=== PATIENT | female | born 2005 | race Hispanic/Latino ===

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

== ENCOUNTER 2024-12-28 13:11 | Emergency (ER) | payer SELFPAY ==
--- OUTSIDE RECORDS SUMMARY | 2024-12-28 13:17 | XMS REPORT | Continuity of Care Document ---
Author Name Unknown Address [address] [facility] [address] [place] [address] [facility] Address [address] [facility] [address] [place] [address] Care Team Providers Care Curriculum Counselor Name Role Phone PCP, PATIENT DOES NOT HAVE A Primary Care Physic zeeshan Unavailable SUZANNE GERBER Attending Clinician Unavailable SUZANNE GERBER Attending Clinician Unavailable Suzanne Gerber MD Attending Clinician [phone] SINDY MONTELONGO Attending Clinician Unavailable SINDY MONTELONGO Attending Clinician Unavailable Nay Bateman MD Attending Clinician + Doctor Unassigned, [place] Attending Clinician U navailable ROB FAY Attending Clinician Unavailable ROB FAY Attending Clinician Unavailable Yaniv Keyes MD Attending Clinician [phone] Rob Fay MD Attending Clinician [phone] Pob, [facility] Main Attending Clinician Unavailabl e 2, [facility] Attending Clinician Unavailable JAZMIN YAN Attending Clinician Unav ailable Ultrasound, Ang-Mfm Attending Clinician UnavailJazmin Kendrick MD Attending Clinician + ABUNDIO YOUNGER Attending Clinician Unavailable ABUNDIO YOUNGER Attending Clinician Unavailable Abundio Younger MD Attending Clinician [phone] Lilian Becker MD Attending Clinician [phone] Tayla Fay MD Attending Clinician [phone] TAYLA FAY Attending Clinician Unavailable NAY BATEMAN Admitting Clinician Unav ailable SUZANNE GERBER CAM Admitting Clinician Unavailable Merline Gerber MDen Cam Admitting Clinician Payers Payer Name Policy Type Policy Number Effective Date Expirati on Date Source Problems Condition Name Condition Details Condition Category Status Onset Date Resolution Date Last Treatment Date Treating Clinician Comments Source Acute blood loss anemia Acute blood loss anemia Disease Resolve d 2023-0 2-13 00:00: 00 2023-07-22 00:00:00 2023-07-22 11:38:22 [facility] Obesity (BMI 30-39.9) Obesity (BMI 30-39.9) Disease Resolve d 2023-0 2-12 00:00: 00 2023-07-22 00:00:00 2023-07-22 11:38:19 [facility] Liveborn infant, of bernal , born in hospital by vaginal delivery Liveborn , of bernal , born in hospital by vaginal delivery Disease Resolve d 2023-0 2-12 00:00: 00 2023-07-22 00:00:00 2023-07-22 11:38:20 [facility] Third-stag e hemorrhage Third-stag e hemorrhage Disease Resolve d 2023-0 2-12 00:00: 00 2023-07-22 00:00:00 2023-07-22 11:38:12 [facility] 39 weeks gestation of 39 weeks gestation of Disease Resolve d 2023-0 2-09 00:00: 00 2023-07-22 00:00:00 2023-07-22 11:38:19 [facility] Excessive weight gain during , antepartum Excessive weight gain during , antepartum Disease Resolve d 2023-0 1-18 00:00: 00 2023-07-22 00:00:00 2023-07-22 11:38:17 [facility] Pain of round ligament during Pain of round ligament during Disease Resolve d 2022-1 2-09 00:00: 00 2023-07-22 00:00:00 2023-07-22 11:38:11 [facility] High-risk in third trimester High-risk in third trimester Disease Resolve d 2022-1 0-12 00:00: 00 2023-07-22 00:00:00 2023-07-22 11:38:16 [facility] Allergies, Adverse Reactions, Alerts Allergy Name Allergy Type Status Severity Reaction(s) Onset Date Inactive Date Treating Clinician Comments Source NO KNOWN ALLERGIE S Drug Class Active [facility] Social History Social Habit Start Date Stop Date Quantity Comments Source ASSERTION 2022-09-28 00:00:[address] [facility] Alcoholic beverage intake 2023-12-31 00:00:00 2023-12-31 00:00:00 Ex-drinker (finding) [facility] Alcohol intake 2023-07-22 00:00:00 2023-07-22 00:00:00 Ex-drinker (finding) [facility] History of Social function 2023-03-14 00:00:00 2023-03-14 00:00:[address] [facility] Tobacco use and exposure 2023-02-14 00:00:00 2023-02-14 00:00:00 Smokeless tobacco non-user [facility] Sex assigned at 2004 00:00:00 2005 00:00:[address] [facility] Smoking Status Start Date Stop Date Source Tobacco smoking consumption unknown [facility] Never smoked tobacco [facility] Medications Ordered Medication Name Filled Medication Name Start Date Stop Date Current Medication? Ordering Clinician Indication Dosage Frequency Signature (SIG) Comments Components Source fluconazole 150 mg tablet 8 00:00: 00 01-02 04:59 :00 No [id number] 150mg Take 1 tablet by mouth once now for 1 dose. [facility] acetaminoph en (TYLENOL) tablet 1,000 mg 10-19 00:30: 00 10-19 00:19 :00 No 1000mg 1,000 mg, Oral, ONCE, 1 dose, On 10/19/23 at 1930, CHIDI [facility] iopamidol (ISOVUE 370-500 mL) injection 100 mL 10-18 23:45: 00 10-19 00:00 :00 No [id number] 100mL 100 mL, Intravenou s, ONCE, 1 dose, On 10/19/23 at 1900, Routine [facility] triamcinolo ne acetonide 0.1 % cream 07-17 00:00: 00 Yes [id number] Apply to area(s) 2 (two) times daily. [facility] adapalene 0.1 % cream 07-17 00:00: 00 Yes [id number] Apply to area(s) at bedtime. Mix 50:50 with OTC urea and apply to arms nightly as tolerated. [facility] tretinoin 0.025 % cream 07-17 00:00: 00 07-17 00:00 :00 No [id number] Apply to affected area(s) at bedtime. [facility] furosemide (LASIX) 20 mg tablet 06-21 00:00: 00 06-22 05:59 :00 No [id number] 20mg Take 1 tablet by mouth once now for 1 dose. [facility] ferrous sulfate tablet 325 mg 06-18 14:00: 00 Yes 325mg 325 mg, Oral, BID, First dose on Sat06/18/23 at 0800, Until Discontinu ed, Routine [facility] PNV 102-IRON-FO LATE 1-DSS-DHA ORAL 06-18 07:45: 23 06-18 00:00 :00 No Take by mouth. [facility] vitamin w/FA tablet 06-18 00:00: 00 Yes [id number] 1{tbl} Take 1 tablet by mouth in the morning. [facility] ferrous sulfate 325 mg (65 mg iron) tablet 06-18 00:00: 00 Yes [id number] 325mg Take 1 tablet by mouth in the morning. [facility] docusate 100 mg capsule 06-18 00:00: 00 12-30 00:00 :00 No [id number] 200mg Take 2 capsules by mouth once daily as needed for Constipati on. [facility] ibuprofen 600 mg tablet 06-18 00:00: 00 12-30 00:00 :00 No [id number] 600mg Take 1 tablet by mouth every 6 (six) hours as needed (Pain). Take with food or milk. [facility] witch Damian (TUCKS) 50 % topical pad 06-17 20:20: 59 Yes Topical, Q4HPRN, Starting on Sat06/17/23 at 1420, Until Discontinu ed, Routine, rectal/hem orrhoidal pain [facility] rho(D) immune globulin (RHOGAM) syringe 300 mcg 06-17 20:20: 08 Yes 300ug 300 mcg, Intramuscu lar, ONCE, For 1 dose, Conditiona l, Routine [facility] HYDROcodone -acetaminop hen (NORCO 5) 5-325 mg tablet 1 tablet 06-17 20:20: 02 Yes 1{tbl} 1 tablet, Oral, Q6HPRN, Starting on Sat06/17/23 at 1420, Until Discontinu ed, Routine, Pain (scale 7-10) [facility] ibuprofen (IBU) tablet 600 mg 06-17 20:20: 02 Yes 600mg 600 mg, Oral, Q6HPRN, Starting on Sat06/17/23 at 1420, Until Discontinu ed, Routine, Pain (scale 4-6) [facility] acetaminoph en (TYLENOL) tablet 650 mg 06-17 20:20: 02 Yes 650mg 650 mg, Oral, Q6HPRN, Starting on Sat06/17/23 at 1420, Until Discontinu ed, Routine, Pain (scale 1-3) [facility] diphenhydrA MINE (BENADRYL) tablet 25 mg 06-17 20:20: 02 Yes 25mg 25 mg, Oral, Q6HPRN, Starting on Sat06/17/23 at 1420, Until Discontinu ed, Routine, Sleep, Itching [facility] ondansetron (ZOFRAN (PF)) injection 4 mg 06-17 20:20: 02 Yes 4mg 4 mg, Slow IV Push, Q8HPRN, Starting on Sat06/17/23 at 1420, Until Discontinu ed, Routine, Nausea and Vomiting (N/V) [facility] simethicone (GAS RELIEF (SIMETHICON E)) chewable tablet 160 mg 06-17 20:20: 02 Yes 160mg 160 mg, Oral, PC+HSPRN, Starting on Sat06/17/23 at 1420, Until Discontinu ed, Routine, Gas [facility] docusate (COLACE) capsule 200 mg 06-17 20:20: 02 Yes 200mg 200 mg, Oral, QDAILYPRN, Starting on Sat06/17/23 at 1420, Until Discontinu ed, Routine, Constipati on [facility] magnesium hydroxide (MILK OF MAGNESIA) 400 mg/5 mL suspension 30 mL 06-17 20:20: 02 Yes 30mL 30 mL, Oral, QDAILYPRN, Starting on Sat06/17/23 at 1420, Until Discontinu ed, Routine, Constipati on [facility] benzocaine- menthol (DERMOPLAST ) 20-0.5 % topical spray 06-17 20:20: 02 Yes Topical, PRN, Starting on Sat06/17/23 at 1420, Until Discontinu ed, Routine, Perineum discomfort [facility] diphenoxyla te-atropine (LOMOTIL) 2.5-0.025 mg tablet 1 tablet 06-17 19:23: 54 06-17 20:20 :59 No 1{tbl} 1 tablet, Oral, Q6HPRN, Starting on Sat06/17/23 at 1323, Until Sat06/17/23 at 1420, Routine, Nausea and Vomiting (N/V) [facility] oxytocin (PITOCIN) 30 units in NS 500 mL IV infusion 06-17 16:14: 58 06-17 20:20 :59 No 2mU/min at 2-40 mL/hr, IV Infusion, TITRATE, Starting on Sat06/17/23 at 1014, Until Sat06/17/23 at 1420, CHIDI [facility] misoprostol (CYTOTEC) quarter-tab let 25 mcg 06-17 11:30: 00 06-17 15:16 :57 No 25ug 25 mcg, Vaginal, Q4H ABX, First dose (after last modificati on) on Sat06/17/23 at 0530, Until Discontinu ed, Routine [facility] misoprostol (CYTOTEC) quarter-tab let 25 mcg 06-17 06:30: 00 06-17 07:23 :00 No 25ug 25 mcg, Oral, ONCE, 1 dose, On Sat06/17/23 at 0030, Routine [facility] misoprostol (CYTOTEC) quarter-tab let 25 mcg 06-17 06:21: 33 06-17 08:37 :14 No 25ug 25 mcg, Vaginal, Q4H ABX, First dose on Sat06/17/23 at 0030, Until Discontinu ed, Routine [facility] ondansetron (ZOFRAN (PF)) injection 4 mg 06-17 06:21: 33 06-17 20:20 :59 No 4mg 4 mg, Slow IV Push, Q8HPRN, Nausea and Vomiting (N/V), Starting on Sat06/17/23 at 0021
Do ses of ondansetro n 16 mg and above need to be administer ed via IV piggyback. For Dose >=24mg ECG monitoring is advisable.
[facility] FENTanyl PF (SUBLIMAZE (PF)) injection 100 mcg 06-17 06:21: 33 06-17 20:20 :59 No 100ug 100 mcg, Slow IV Push, Q1HPRN, Starting on Sat06/17/23 at 0021, Until Sat06/17/23 at 1420, Routine, contractio n pain without an epidural and SVE < 8 cm and Cat I strip [facility] lactated ringers IV infusion 500 mL 06-17 06:21: 29 06-17 20:20 :46 No 500mL at 999 mL/hr, 500 mL, IV Infusion, PRN - SEE INSTRUCTIO NS, Starting on Sat06/17/23 at 0021, Until Sat06/17/23 at 1420, Routine [facility] carboprost (HEMABATE) injection 250 mcg 06-17 06:: 06-17 20:20 :46 No 250ug 250 mcg, Intramuscu lar, Q2HPRN, 8 doses, Starting on Sat06/17/23 at 0021, Until Sat06/17/23 at 1420, Routine, PPH [facility] methylergon ovine (METHERGINE ) injection 0.2 mg 06-17 06:: 06-17 19:08 :00 No .2mg 0.2 mg, Intramuscu lar, Q4HPRN, 1 dose, Starting on Sat06/17/23 at 0021, Until Discontinu ed, Routine, PPH [facility] oxytocin (PITOCIN) 30 units in NS 500 mL IV infusion 06-17 06:: 06-17 19:09 :00 No 600mL/h 600 mL/hr, IV Infusion, PRN, PPH, Starting on Sat06/17/23 at 0021, For 1 dose
As instructed by physician at bedside.<b r> [facility] D5W-LR IV infusion 1,000 mL 06-17 06:: 06-17 20:20 :46 No 1000mL at 1-125 mL/hr, IV Infusion, TITRATE, Starting on Sat06/17/23 at 0021, Until Sat06/17/23 at 1420, Routine [facility] sodium citrate-cit marin acid (BICITRA) 500-334 mg/5 mL solution 30 mL 06-17 06:21: 06-17 12:04 :00 No 30mL 30 mL, Oral, PRE-PROCED URE ONCE, 1 dose, Starting on Sat06/17/23 at 0021, Until Discontinu ed, Routine, Surgery/Pr ocedure [facility] lactated ringers IV infusion 500 mL 06-17 06:21: 25 06-17 13:56 :00 No 500mL at 999 mL/hr, 500 mL, IV Infusion, PRN - SEE RICHARD SIGALA, 1 dose, Starting on Sat06/17/23 at 0021, Until Discontinu ed, Routine [facility] CALCIUM ACETATE ORAL 05-30 11:39: 55 05-30 00:00 :00 No Take by mouth. [facility] CALCIUM ACETATE ORAL 05-23 10:06: 10 Yes Take by mouth. [facility] hydrocortis one 2.5 % cream 2022-05 00:00: 00 05-30 00:00 :00 No [id number] Apply to affected area(s) 2 (two) times daily. Safe for the face. [facility] fluconazole (DIFLUCAN) 200 mg tablet 2022-05 00:00: 00 05-30 00:00 :00 No [id number] 200mg Take 1 tablet by mouth in the morning. [facility] metroNIDAZO LE (FLAGYL) 500 mg tablet 2022-05 0 00:00: 00 02-23 04:59 :00 No [id number] 500mg Take 1 tablet by mouth in the morning and 1 tablet in the evening. Do all this for 7 days. [facility] CALCIUM ACETATE ORAL 2022-05 0 14:31: 25 Yes Take by mouth. [facility] nystatin-tr iamcinolone cream 2022-05 0-12 00:00: 00 05-30 00:00 :00 No [id number] Apply to area(s) 2 (two) times daily. [facility] Immunizations Ordered Immunization Name Filled Immunization Name Date Status Comments Source Influenza Virus Vaccine Quad IM, Preserv and ABX Free 6 MO-64 YRS (FLUCELVAX) Unknown Completed [facility] Influenza Virus Vaccine Quad IM, Preserv and ABX Free 6 MO-64 YRS (FLUCELVAX) Unknown Completed [facility] Influenza Virus Vaccine Quad IM, Preserv and ABX Free 6 MO-64 YRS (FLUCELVAX) Unknown Completed [facility] Influenza Virus Vaccine Quad IM, Preserv and ABX Free 6 MO-64 YRS (FLUCELVAX) Unknown Completed [facility] Influenza Virus Vaccine Quad IM, Preserv and ABX Free 6 MO-64 YRS (FLUCELVAX) Unknown Completed [facility] Influenza Virus Vaccine Quad IM, Preserv and ABX Free 6 MO-64 YRS (FLUCELVAX) Unknown Completed [facility] Influenza Virus Vaccine Quad IM, Preserv and ABX Free 6 MO-64 YRS (FLUCELVAX) Unknown Completed [facility] TDAP Unknown Completed [facility] Influenza Virus Vaccine Quad IM, Preserv and ABX Free 6 MO-64 YRS (FLUCELVAX) Unknown Completed [facility] Influenza Virus Vaccine Quad IM, Preserv and ABX Free 6 MO-64 YRS (FLUCELVAX) Unknown Completed [facility] TDAP Unknown Completed [facility] Influenza Virus Vaccine Quad IM, Preserv and ABX Free 6 MO-64 YRS (FLUCELVAX) Unknown Completed [facility] TDAP Unknown Completed [facility] Influenza Virus Vaccine Quad IM, Preserv and ABX Free 6 MO-64 YRS (FLUCELVAX) Unknown Completed [facility] TDAP Unknown Completed [facility] Influenza Virus Vaccine Quad IM, Preserv and ABX Free 6 MO-64 YRS (FLUCELVAX) Unknown Completed [facility] TDAP Unknown Completed [facility] Influenza Virus Vaccine Quad IM, Preserv and ABX Free 6 MO-64 YRS (FLUCELVAX) Unknown Completed [facility] Influenza Virus Vaccine Quad IM, Preserv and ABX Free 6 MO-64 YRS (FLUCELVAX) Unknown Completed [facility] TDAP Unknown Completed [facility] Influenza Virus Vaccine Quad IM, Preserv and ABX Free 6 MO-64 YRS (FLUCELVAX) Unknown Completed [facility] TDAP Unknown Completed [facility] Influenza Virus Vaccine Quad IM, Preserv and ABX Free 6 MO-64 YRS (FLUCELVAX) Unknown Completed [facility] TDAP Unknown Completed [facility] Influenza Virus Vaccine Quad IM, Preserv and ABX Free 6 MO-64 YRS (FLUCELVAX) Unknown Completed [facility] TDAP Unknown Completed [facility] Influenza Virus Vaccine Quad IM, Preserv and ABX Free 6 MO-64 YRS (FLUCELVAX) Unknown Completed [facility] TDAP Unknown Completed [facility] Influenza Virus Vaccine Quad IM, Preserv and ABX Free 6 MO-64 YRS (FLUCELVAX) Unknown Completed [facility] TDAP Unknown Completed [facility] Influenza Virus Vaccine Quad IM, Preserv and ABX Free 6 MO-64 YRS (FLUCELVAX) Unknown Completed [facility] TDAP Unknown Completed [facility] Influenza Virus Vaccine Quad IM, Preserv and ABX Free 6 MO-64 YRS (FLUCELVAX) Unknown Completed [facility] TDAP Unknown Completed [facility] Influenza Virus Vaccine Quad IM, Preserv and ABX Free 6 MO-64 YRS (FLUCELVAX) Unknown Completed [facility] Influenza Virus Vaccine Quad IM, Preserv and ABX Free 6 MO-64 YRS (FLUCELVAX) Unknown Completed [facility] TDAP Unknown Completed [facility] Influenza Virus Vaccine Quad IM, Preserv and ABX Free 6 MO-64 YRS (FLUCELVAX) Unknown Completed [facility] TDAP Unknown Completed [facility] Influenza Virus Vaccine Quad IM, Preserv and ABX Free 6 MO-64 YRS (FLUCELVAX) Unknown Completed [facility] TDAP Unknown Completed [facility] Influenza Virus Vaccine Quad IM, Preserv and ABX Free 6 MO-64 YRS (FLUCELVAX) Unknown Completed [facility] TDAP Unknown Completed [facility] Influenza Virus Vaccine Quad IM, Preserv and ABX Free 6 MO-64 YRS (FLUCELVAX) Unknown Completed [facility] TDAP Unknown Completed [facility] Influenza Virus Vaccine Quad IM, Preserv and ABX Free 6 MO-64 YRS (FLUCELVAX) Unknown Completed [facility] TDAP Unknown Completed [facility] Influenza Virus Vaccine Quad IM, Preserv and ABX Free 6 MO-64 YRS (FLUCELVAX) Unknown Completed [facility] Influenza Virus Vaccine Quad IM, Preserv and ABX Free 6 MO-64 YRS (FLUCELVAX) Unknown Completed [facility] TDAP Unknown Completed [facility] Influenza Virus Vaccine Quad IM, Preserv and ABX Free 6 MO-64 YRS (FLUCELVAX) Unknown Completed [facility] TDAP Unknown Completed [facility] Influenza Virus Vaccine Quad IM, Preserv and ABX Free 6 MO-64 YRS (FLUCELVAX) Unknown Completed [facility] TDAP Unknown Completed [facility] Influenza Virus Vaccine Quad IM, Preserv and ABX Free 6 MO-64 YRS (FLUCELVAX) Unknown Completed [facility] Influenza Virus Vaccine Quad IM, Preserv and ABX Free 6 MO-64 YRS (FLUCELVAX) Unknown Completed [facility] Vital Signs Vital Name Observation Time Observation Value Comments S our Systolic blood pressure 2023-12-31 20:58:00 107 mm[Hg] [facility] Diastolic blood pressure 2023-12-31 20:58:00 67 mm[Hg] [facility] Heart rate 2023-12-31 20:58:00 75 /min [facility] Body temperature 2023-12-31 20:58:[address] [facility] Body weight 2023-12-31 20:58:00 69.945 kg [facility] Systolic blood pressure 2023-10-20 01:00:00 113 mm[Hg] [facility] Diastolic blood pressure 2023-10-20 01:00:00 90 mm[Hg] [facility] Heart rate 2023-10-20 01:00:00 92 /min [facility] Body temperature 2023-10-20 01:00:[address] [facility] Respiratory rate 2023-10-20 01:00:00 16 /min [facility] Oxygen saturation in Arterial blood by Pulse oximetry 2023-10-20 01:00:00 98 /min [facility] Body height 2023-10-19 21:43:00 165.1 cm [facility] Body weight 2023-10-19 21:43:00 72.576 kg [facility] BMI 2023-10-19 21:43:00 26.63 kg/m2 [facility] Systolic blood pressure 2023-07-22 16:37:00 114 mm[Hg] [facility] Diastolic blood pressure 2023-07-22 16:37:00 55 mm[Hg] [facility] Heart rate 2023-07-22 16:37:00 63 /min [facility] Respiratory rate 2023-07-22 16:37:00 18 /min [facility] Body height 2023-07-22 16:37:00 167.6 cm [facility] Body weight 2023-07-22 16:37:00 75.751 kg [facility] BMI 2023-07-22 16:37:00 26.95 kg/m2 [facility] Systolic blood pressure 2023-06-21 22:13:00 126 mm[Hg] [facility] Diastolic blood pressure 2023-06-21 22:13:00 83 mm[Hg] [facility] Heart rate 2023-06-21 22:13:00 89 /min [facility] Body temperature 2023-06-21 22:13:[address] [facility] Respiratory rate 2023-06-21 22:13:00 16 /min [facility] Body height 2023-06-21 22:13:00 165.1 cm [facility] Body weight 2023-06-21 22:13:00 81.058 kg [facility] BMI 2023-06-21 22:13:00 29.74 kg/m2 [facility] Oxygen saturation in Arterial blood by Pulse oximetry 2023-06-21 22:13:00 97 /min [facility] Systolic blood pressure 2023-06-18 22:15:00 120 mm[Hg] [facility] Diastolic blood pressure 2023-06-18 22:15:00 74 mm[Hg] [facility] Body temperature 2023-06-18 20:23:[address] [facility] Respiratory rate 2023-06-18 20:23:00 18 /min [facility] Heart rate 2023-06-18 20:20:00 84 /min [facility] Oxygen saturation in Arterial blood by Pulse oximetry 2023-06-18 20:20:00 100 /min [facility] Body height 2023-06-17 06:30:00 165.1 cm [facility] Body weight 2023-06-17 06:30:00 85.367 kg [facility] BMI 2023-06-17 06:30:00 31.32 kg/m2 [facility] Systolic blood pressure 2023-06-13 15:43:00 114 mm[Hg] [facility] Diastolic blood pressure 2023-06-13 15:43:00 65 mm[Hg] [facility] Heart rate 2023-06-13 15:43:00 95 /min [facility] Body temperature 2023-06-13 15:43:[address] [facility] Body height 2023-06-13 15:43:00 167.6 cm [facility] Body weight 2023-06-13 15:43:00 85.458 kg [facility] BMI 2023-06-13 15:43:00 30.41 kg/m2 [facility] Systolic blood pressure 2023-06-06 17:01:00 123 mm[Hg] [facility] Diastolic blood pressure 2023-06-06 17:01:00 69 mm[Hg] [facility] Heart rate 2023-06-06 17:01:00 102 /min [facility] Body temperature 2023-06-06 17:01:[address] [facility] Body height 2023-06-06 17:01:00 167.6 cm [facility] Body weight 2023-06-06 17:01:00 85.095 kg [facility] BMI 2023-06-06 17:01:00 30.28 kg/m2 [facility] Systolic blood pressure 2023-05-30 17:08:00 117 mm[Hg] [facility] Diastolic blood pressure 2023-05-30 17:08:00 78 mm[Hg] [facility] Heart rate 2023-05-30 17:08:00 100 /min [facility] Body temperature 2023-05-30 17:08:[address] [facility] Body height 2023-05-30 17:08:00 167.6 cm [facility] [facility] Body weight 2023-05-30 17:08:00 83.643 kg [facility] BMI 2023-05-30 17:08:00 29.76 kg/m2 [facility] Systolic blood pressure 2023-05-23 16:05:00 116 mm[Hg] [facility] Diastolic blood pressure 2023-05-23 16:05:00 76 mm[Hg] [facility] Heart rate 2023-05-23 16:05:00 105 /min [facility] Respiratory rate 2023-05-23 16:05:00 18 /min [facility] Body height 2023-05-23 16:05:00 167.6 cm [facility] Body weight 2023-05-23 16:05:00 82.827 kg [facility] BMI 2023-05-23 16:05:00 29.47 kg/m2 [facility] Oxygen saturation in Arterial blood by Pulse oximetry 2023-05-23 16:05:00 97 /min [facility] Systolic blood pressure 2023-05-09 15:16:00 104 mm[Hg] [facility] Diastolic blood pressure 2023-05-09 15:16:00 66 mm[Hg] [facility] Heart rate 2023-05-09 15:16:00 81 /min [facility] Body temperature 2023-05-09 15:16:[address] [facility] Respiratory rate 2023-05-09 15:16:00 17 /min [facility] Body height 2023-05-09 15:16:00 167.6 cm [facility] Body weight 2023-05-09 15:16:00 82.192 kg [facility] BMI 2023-05-09 15:16:00 29.25 kg/m2 [facility] Systolic blood pressure 2023-04-25 14:37:00 110 mm[Hg] [facility] Diastolic blood pressure 2023-04-25 14:37:00 66 mm[Hg] [facility] Heart rate 2023-04-25 14:37:00 93 /min [facility] Body temperature 2023-04-25 14:37:[address] [facility] Respiratory rate 2023-04-25 14:37:00 17 /min [facility] Body height 2023-04-25 14:37:00 170.2 cm [facility] Body weight 2023-04-25 14:37:00 81.738 kg [facility] BMI 2023-04-25 14:37:00 28.22 kg/m2 [facility] Systolic blood pressure 2023-04-11 14:19:00 107 mm[Hg] [facility] Diastolic blood pressure 2023-04-11 14:19:00 69 mm[Hg] [facility] Heart rate 2023-04-11 14:19:00 89 /min [facility] Body temperature 2023-04-11 14:19:[address] [facility] Respiratory rate 2023-04-11 14:19:00 17 /min [facility] Body height 2023-04-11 14:19:00 170.2 cm [facility] Body weight 2023-04-11 14:19:00 81.103 kg [facility] BMI 2023-04-11 14:19:00 28.00 kg/m2 [facility] Body height 2023-04-01 17:00:00 165.1 cm [facility] Body weight 2023-04-01 17:00:00 78.019 kg [facility] BMI 2023-04-01 17:00:00 28.62 kg/m2 [facility] Systolic blood pressure 2023-03-21 12:21:00 119 mm[Hg] [facility] Diastolic blood pressure 2023-03-21 12:21:00 82 mm[Hg] [facility] Heart rate 2023-03-21 12:21:00 89 /min [facility] Body temperature 2023-03-21 12:21:[address] [facility] Respiratory rate 2023-03-21 12:21:00 20 /min [facility] Body height 2023-03-21 12:21:00 165.1 cm [facility] Body weight 2023-03-21 12:21:00 78.971 kg [facility] BMI 2023-03-21 12:21:00 28.97 kg/m2 [facility] Oxygen saturation in Arterial blood by Pulse oximetry 2023-03-21 12:21:00 100 /min [facility] Systolic blood pressure 2023-03-14 22:14:00 125 mm[Hg] [facility] Diastolic blood pressure 2023-03-14 22:14:00 69 mm[Hg] [facility] Heart rate 2023-03-14 22:14:00 80 /min [facility] Body temperature 2023-03-14 22:14:[address] [facility] Respiratory rate 2023-03-14 22:14:00 17 /min [facility] Body height 2023-03-14 22:14:00 165.1 cm [facility] Body weight 2023-03-14 22:14:00 78.472 kg [facility] BMI 2023-03-14 22:14:00 28.79 kg/m2 [facility] Systolic blood pressure 2023-02-14 19:31:00 123 mm[Hg] [facility] Diastolic blood pressure 2023-02-14 19:31:00 73 mm[Hg] [facility] Heart rate 2023-02-14 19:31:00 86 /min [facility] Body temperature 2023-02-14 19:31:[address] [facility] Respiratory rate 2023-02-14 19:31:00 18 /min [facility] Body height 2023-02-14 19:31:00 165.1 cm [facility] Body weight 2023-02-14 19:31:00 76.386 kg [facility] BMI 2023-02-14 19:31:00 28.02 kg/m2 [facility] Body mass index (BMI) [Percentile] Per age and sex 2023-02-14 19:31:00 90.65 % [facility] Oxygen saturation in Arterial blood by Pulse oximetry 2023-02-14 19:31:00 99 /min [place] [facility] Procedures Procedure Date / Time Performed Performing Clinicia n Source CT ABDOMEN PELVIS W CONTRAST 2023-10-19 23:45:[address] [facility] XR CHEST 1 VW 2023-10-19 23:40:[address] [facility] XR PELVIS <3 VW 2023-10-19 23:40:[address] [facility] POCT TEST 2023-10-19 23:05:[address] [facility] LIPASE 2023-10-19 21:59:[address] [facility] COMP. METABOLIC PANEL (32403) 2023-10-19 21:59:[address] [facility] CBC WITH DIFF 2023-10-19 21:59:[address] [facility] CBC WITH DIFF 2023-06-18 10:30:[address] [facility] EXTRA TUBE LAV (BLOOD BANK) 2023-06-17 07:35:[address] [facility] HB ABO GROUPING 2023-06-17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 39 weeks. Tentatively plan for 06/17/2023 unless clinically indicated otherwise -Daily kick counts and labor precautions given -Contraception: Undecided. Information given. -Follow-up in 1 week for visit [facility] 2023-05-30 11:15:00 Age: [age] year old GA: 36w6d -Doing well without concerns -Desires SVE. SVE fingertip/50/-2 -Desires induction at 39 weeks. Tentatively plan for 06/17/2023 unless clinically indicated otherwise -GBS negative on 05/23/2023 -Daily kick counts and labor precautions given -Follow-up in 1 week for visit [facility] 2023-05-23 11:00:00 Loaded pt w 50gm glucola, no issues. [facility] 2023-05-23 11:00:00 Images from the original note were not included. Venipuncture collection performed by clean technique on the left anticubitus. Total of 1 attempts were made. Slight pressure and a bandage/dressing were applied to the site(s). The patient experienced no complications. The following specimens were processed according to instructions and sent to [facility] laboratories per lab order on 05/23/2023 : LT BLUE SST 2 RED 1 LAV 2 PPT DK GREEN (LiHep) DK GREEN (SodH) BUSTOS DK BLUE (K2) DK BLUE (S) ACD Blood Culture NIPT/NTD [facility] 2023-05-23 09:45:00 Age: [age] year old GA: 35w6d -Doing well -Excessive weight gain: Advise walking at least 30 minutes daily. Sensible healthy diet. - Discussed elective induction at 39 wks versus awaiting spontaneous labor. Patient will think about it This reviews what Dr. Gerber talked about at your 36 week talk: 1. Go to Labor and Delivery when your contractions are 5-7 minutes apart and you have been able to time them for an hour. If you live more than 30 minutes from the hospital, then go when they are 10 minutes apart and you have been able to time them for an hour. 2. BUT, there are 4 reasons to go to Labor and Delivery REGARDLESS of what else is happening, whether you are dennise or not: 1. If your water breaks - - - it may be a gush or a constant trickle. If you are not sure, always come in to be checked. 2. Bleeding like your period. 3. If your baby's movements are less than 10 in an hour. If you are concerned this might be the case, drink a tall glass of cold fluids, lay down on your side on the couch or your bed and see how long it takes to note 10 movements - if less than 10, this needs to be evaluated immediately. 4. Contractions or Pain that is continuous. Normal labor contractions last only 45 seconds - 1 minute. cephalic presentation GC/CT and GBS obtained, CBC ordered Zika precautions reviewed Contraception PP: Will discuss next visit Delivery consent signed today RTC in 1 wk for PN [facility] M[facility] Delo 2023-05-09 09:30:00 Age: [age] year old GA: 33w6d -Doing well -Will discuss weight gain at next visit -Ultrasound on 05/08/2023: Appropriate interval growth. EFW 5 pounds 11 ounces, 76 percentile. 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
[2024-12-28 14:04] LABS: Absolute Lymphocytes (CBC) 1.4 K/uL (0.7-4.9); Hematocrit 39.4 % (36.0-45.0); Hemoglobin 12.9 g/dL (12.0-15.0); MCH 27.5 pg (27.0-35.0); MCHC 32.6 g/dL (32.0-36.0); MCV 84.2 fL (80-100); MPV 8.4 fL (7.6-11.3); Nucleated RBC Absolute Count 0.0 (0-0); Nucleated Red Blood Cells % 0.0 % (0-0); RBC Red Blood Cell Count 4.68 M/uL (3.86-4.86); White Blood Count 6.90 thou/uL (4.3-10.9)
[2024-12-28 14:21] LABS: Anion Gap 8.3 mEq/L (5.0-15.0); BUN Blood Urea Nitrogen 10.0 mg/dL (7-18); Glucose Level 66.0 mg/dL (74-106); Potassium 3.3 mEq/L (3.5-5.1)
--- NOTE | 2024-12-28 15:31 | RAD REPORT ---
EXAMINATION: US Transvaginal OB CLINICAL INDICATION: Female 19 years old.[facility] MAIN VAGINAL BLEEDING Bed Name: 2 TECHNIQUE: Real-time ultrasonography of the pelvis was performed transvaginally. Color and spectral D oppler evaluation of the ovaries was performed. COMPARISON: No prior exam. FINDINGS: UTERUS AND CERVIX: The uterus measures cm in length. The uterus is normal. No gestational sac visuali zed. The endometrium is normal, 0.7 cm in thickness. RIGHT OVARY: Normal The right ovary measures 2.7 x 1.6 x 1.6 cm. Normal color and spectral Doppler evaluation of the right ovary.. LEFT OVARY: Normal The left ovary measures 1.8 x 2.6 x 1.8 cm. Normal color and spectral Doppler evaluation of the left ovary.. FREE FLUID: No free fluid. IMPRESSION: No evidence of intrauterine or extrauterine . No suspicious abnormalities in the pelvis. Concepcion se clinical follow-up and serial beta hCG trending recommended.
[2024-12-28 16:25] LABS: Sqamous Epithelial <5 /HPF (None Seen); Urine Crystals Unidentified Few /HPF (None Seen); Urine Culture Reflex Order REFLEXED; Urine Microscopic Reflex YN ORDER UMIC; Urine Yeast (Budding) Trace /HPF (None Seen)
--- NOTE | 2024-12-28 17:48 | EDPHYS ---
Physician Documentation [facility] Name: Renee Rivera Age: 19 yrs Sex: Female : 2005 Arrival Date: 12/28/2024 Time: 13:11 Bed 2 Private MD: ED Physician Humphrey Horton HPI: 12/28 13:42 This 19 yrs old Female presents to ER via Ambulatory with complaints of ms3 Vaginal Bleeding, + Preg <12wks. 13:42 19-year-old female, -0-1-1 with last menstrual period of November 06, 2024 presents to [facility] the emergency department for vaginal bleeding that began last night. Patient states today she awoke with a pad full of blood. Patient states she has gone through 2 pads today after waking at 10 AM. Patient notes she did have lower abdominal cramping last night. She rates her discomfort a 5/10 and states her pain is improved over time. Patient denies lightheadedness, shortness of breath, fevers, chills.. SECURITY COORDINATOR: 14:03 3, Full Term 1, 1, Living 1, LMP 11/06/2024, Verified, EDC cm10 08/13/2025, Gestational age from LMP: 7 weeks 3 days Historical: - Allergies: 13:21 NKDA; hb - Home Meds: 13:21 None [Active]; hb - PMHx: 13:21 None; hb - PSHx: 13:21 None; hb - Immunization history:: Adult Immunizations up to date. - Infectious Disease History:: Denies. - Social history:: Smoking status: unknown. ROS: 13:42 Constitutional: Negative for fever, and chills. Cardiovascular: Negative for chest ms3 pain, and palpitations. Respiratory: Negative for shortness of breath, cough, wheezing, and pleuritic chest pain, 13:42 MS/Extremity: Negative for injury and deformity, Skin: Negative for injury, rash, and discoloration, 13:42 Abdomen/GI: Positive for abdominal pain, 13:42 : Positive for vaginal bleeding, Exam: 13:42 Constitutional: This is a well developed, well nourished patient who is awake, alert, ms3 and in no acute distress. Head/Face: Normocephalic, atraumatic. Cardiovascular: Regular rate and rhythm with a normal S1 and S2. No gallops, murmurs, or rubs. Normal PMI, no JVD. No pulse deficits. Respiratory: Lungs have equal breath sounds bilaterally, clear to auscultation and percussion. No rales, rhonchi or wheezes noted. No increased work of breathing, no retractions or nasal flaring. Abdomen/GI: Soft, non-tender, with normal bowel sounds. No distension or tympany. No guarding or rebound. No evidence of tenderness throughout. Vital Signs: 13:19 BP 131 / 88; Pulse 73; Resp 16; Temp 97.1; Pulse Ox 100% ; Weight 63.5 kg; Height 5 ft. hb 5 in. ; Pain 5/10; 14:03 BP 111 / 65; Pulse 75; Resp 16; Pulse Ox 100% on R/A; cm10 16:40 BP 111 / 61; Pulse 103; Resp 14; Pulse Ox 100% ; cm10 18:06 BP 125 / 69; Pulse 92; Resp 16; Pulse Ox 100% ; cm10 13:19 Body Mass Index 23.30 (63.50 kg, 165.1 cm) hb 13:19 Pain Scale: Adult hb MDM: 13:26 Medical Screening Exam initiated ms3 13:42 Differential diagnosis: threatened Ab, inevitable Ab, complete Ab, missed Ab, ectopic ms3 . 17:48 Data reviewed: vital signs, nurses notes, lab test result(s), radiologic studies, ms3 ultrasound, and as a result, I will discharge patient. I considered the following discharge prescriptions or medication management in the emergency department See Rx. Counseling: I had a detailed discussion with the patient and/or guardian regarding the historical points, exam findings, and any diagnostic results supporting the discharge/admit diagnosis, lab results, radiology results, the need for outpatient follow up, to return to the emergency department if symptoms worsen or persist or if there are any questions or concerns that arise at home. Special discussion: I discussed with the patient/guardian in detail that at this point there is no indication for admission to the hospital. It is understood, however, that if the symptoms persist or worsen the patient needs to return immediately for re-evaluation. ED course: Discussed labs and imaging with patient. Patient to follow-up with her OB within 48 hours for repeat hCG. Discussed plan with patient. Patient understands and agrees with plan. All questions were answered. Return precautions were discussed include fevers, lightheadedness, increased abdominal pain, worsening symptoms, or any other concerns. On reevaluation patient is alert and orient x 4, no apparent distress, nontoxic-appearing, speaking full sentences.. 12/28 13:18 Order name: Abo/rh Typing; Complete Time: 15:33 ms3 12/28 13:18 Order name: Basic Metabolic Panel; Complete Time: 15:33 ms3 12/28 13:18 Order name: CBC with Diff; Complete Time: 15:33 ms3 12/28 13:18 Order name: Test, Urine; Complete Time: 15:33 ms3 12/28 15:33 Order name: Quantitative Hcg; Complete Time: 17:20 ms3 12/28 15:33 Order name: UA Rfx Lio Cult if indicated; Complete Time: 17:20 ms3 12/28 16:30 Order name: Urine Culture EDFL 12/28 13:42 Order name: US Transvaginal Ob; Complete Time: 15:33 ms3 12/28 13:18 Order name: IV Saline Lock; Complete Time: 13:36 ms3 12/28 13:18 Order name: Labs collected and sent; Complete Time: 13:51 ms3 12/28 13:18 Order name: NPO; Complete Time: 13:51 ms3 Administered Medications: No medications were administered Disposition Summary: 12/28/24 17:47 Discharge Ordered Notes: Location: Home ms3 Condition: Stable ms3 Diagnosis - Threatened ms3 - UTI/ Urinary tract infection, site not specified ms3 Followup: ms3 - With: Private Physician - When: 2 - 3 days - Reason: Recheck today's complaints Discharge Instructions: - Discharge Summary Sheet ms3 - Threatened Miscarriage ms3 - Urinary Tract Infection, Adult ms3 Forms: - Medication Reconciliation Form ms3 - Antibiotic Education ms3 - Prescription Opioid Use ms3 - Patient Portal Instructions ms3 - Leadership Thank You Letter ms3 Prescriptions: - cefpodoxime 100 mg Oral Tablet - take 1 tablet ORAL route every 12 hours for 10 days take with food; 20 tablet; ms3 Refills: 0, Product Selection Permitted Signatures: Dispatcher [employer] EDTara Ferrer RN RN hb Sims, Marcus, DO DO ms3 Devan, Sonia, RN RN cm10 Corrections: (The following items were deleted from the chart) 1343 13:43 Transvaginal Ob+US.RAD.BRZ ordered. EDMS EDMS
--- NOTE | 2024-12-28 17:48 | ER ---
Nurse's Notes [facility] Name: Renee Rivera Age: 19 yrs Sex: Female : 2005 Arrival Date: 12/28/2024 Time: 13:11 Bed 2 Private MD: Diagnosis: Threatened ;UTI/ Urinary tract infection, site not specified Presentation: 12/28 13:19 Chief complaint: LOWER ABDOMINAL CRAMPING AND VAGINAL BLEEDING X 2 DAYS. APPROX 5 WEEKS hb , , LMP 11/06, CAR 08/29. Coronavirus screen: At this time, the client does not indicate any symptoms associated with coronavirus-19. Ebola Screen: No symptoms or risks identified at this time. Initial Sepsis Screen: Does the patient meet any 2 criteria? No. Patient's initial sepsis screen is negative. Does the patient have a suspected source of infection? No. Patient's initial sepsis screen is negative. Risk Assessment: Do you want to hurt yourself or someone else? Patient reports no desire to harm self or others. Onset of symptoms was December 27, 2024. 13:19 Method Of Arrival: Ambulatory hb 13:19 Acuity: ASIA 3 hb HAT MENDER: 14:03 3, Full Term 1, 1, Living 1, LMP 11/06/2024, Verified, EDC cm10 08/13/2025, Gestational age from LMP: 7 weeks 3 days Historical: - Allergies: 13:21 NKDA; hb - Home Meds: 13:21 None [Active]; hb - PMHx: 13:21 None; hb - PSHx: 13:21 None; hb - Immunization history:: Adult Immunizations up to date. - Infectious Disease History:: Denies. - Social history:: Smoking status: unknown. Screenin:15 [facility] ED Fall Risk Assessment (Adult) History of falling in the last 3 months, cm10 including since admission No falls in past 3 months (0 pts) Confusion or Disorientation No (0 pts) Intoxicated or Sedated No (0 pts) Impaired Gait No (0 pts) Mobility Assist Device Used No (0 pt) Altered Elimination No (0 pt) Score/Fall Risk Level 0 - 2 = Low Risk Oriented to surroundings, Maintained a safe environment, Hourly rounding (assess needs \T\ fall precautionary measures) done. Abuse screen: Denies threats or abuse. Denies injuries from another. Nutritional screening: No deficits noted. Tuberculosis screening: No symptoms or risk factors identified. Assessment: 14:14 General: Appears in no apparent distress. comfortable, Behavior is calm, cooperative, cm10 appropriate for age. Pain: Complains of pain in abdomen Pain currently is 5 out of 10 on a pain scale. Quality of pain is described as crampy. Neuro: No deficits noted. Level of Consciousness is awake, alert, obeys commands, Oriented to person, place, time, situation, Appropriate for age. Respiratory: No deficits noted. Airway is patent Respiratory effort is even, unlabored, Respiratory pattern is regular, symmetrical. : Reports vaginal bleeding that is with clots. 16:41 Reassessment: Patient appears in no apparent distress at this time. Patient and/or cm10 family updated on plan of care and expected duration. Pain level reassessed. Patient is alert, oriented x 3, equal unlabored respirations, skin warm/dry/pink. 17:45 Reassessment: Patient appears in no apparent distress at this time. Patient and/or cm10 family updated on plan of care and expected duration. Pain level reassessed. Patient is alert, oriented x 3, equal unlabored respirations, skin warm/dry/pink. Vital Signs: 13:19 BP 131 / 88; Pulse 73; Resp 16; Temp 97.1; Pulse Ox 100% ; Weight 63.5 kg; Height 5 ft. hb 5 in. ; Pain 5/10; 14:03 BP 111 / 65; Pulse 75; Resp 16; Pulse Ox 100% on R/A; cm10 16:40 BP 111 / 61; Pulse 103; Resp 14; Pulse Ox 100% ; cm10 18:06 BP 125 / 69; Pulse 92; Resp 16; Pulse Ox 100% ; cm10 13:19 Body Mass Index 23.30 (63.50 kg, 165.1 cm) hb 13:19 Pain Scale: Adult hb ED Course: 13:13 Patient arrived in ED. al6 13:16 Humphrey Horton DO is Attending Physician. ms3 13:21 Triage completed. hb 13:26 Sonia Hartman, RN is Primary Nurse. cm10 13:51 Abo/rh Typing Sent. cm10 13:51 Basic Metabolic Panel Sent. cm10 13:51 CBC with Diff Sent. cm10 13:51 Test, Urine Sent. cm10 13:51 Initial lab(s) drawn, by me, sent to lab. Inserted saline lock: 20 gauge in left cm10 antecubital area, using aseptic technique. Blood collected. Flushed with 10 mL NS. 13:51 Arm band placed on right wrist. Patient placed in an exam room, on a stretcher. cm10 13:51 Patient has correct armband on for positive identification. Placed in gown. Bed in low cm10 position. Call light in reach. Side rails up X 1. Pulse ox on. NIBP on. 14:24 US Transvaginal Ob In Process Unspecified. EDMS 18:06 No provider procedures requiring assistance completed. IV discontinued, intact, cm10 bleeding controlled, No redness/swelling at site. Pressure dressing applied. 18:06 Provided Education on: Follow-up instructions. cm10 Administered Medications: No medications were administered Medication: 14:15 VIS not applicable for this client. cm10 Outcome: 17:47 Discharge ordered by . ms3 18:06 Discharged to home ambulatory, with significant other, cm10 18:06 Condition: good 18:06 Discharge instructions given to patient, Instructed on discharge instructions, follow up and referral plans. medication usage, Demonstrated understanding of instructions, follow-up care, medications, Prescriptions given X 1, 18:07 Patient left the ED. cm10 Signatures: Dispatcher [employer] EDMS Tara Perez, RN Humphrey Heredia DO DO ms3 Sonia Hartman RN RN cm10 Patricia Granger6
[2024-12-28 22:27] VITALS: TEMP 97.1; O2SAT 100
[2024-12-28 22:44] VITALS: BP 125/69
== END 2024-12-28 18:07 | disposition home or self-care (01) ==
LOC: ER 13:11
DX: O20.0 Threatened abortion (principal); O23.41 Unspecified infection of urinary tract in pregnancy, first trimester; N39.0 Urinary tract infection, site not specified; Z3A.01 Less than 8 weeks gestation of pregnancy
CPT/HCPCS: 36415; 76817; 80048; 81001; 81025; 84702; 85025; 86900; 86901; 87086; 87088; 99284